=== PATIENT | female | born 1990 | race Caucasian/White ===

== ENCOUNTER 2017-12-21 20:12 | Inpatient (IN) | payer OTHER ==
--- NOTE | 2017-12-21 22:52 | PR ---
[facility] [address] [facility] [place], [place] [address] Signed Progress Notes IP Datetime Report Generated by PAOLO: 12/21/2017 22:52 PROGRESS NOTES: [id number] Impression: Slow Progression of Labor Procedures: Artificial ROM; Sterile Vag Exam Plan: Continue present management Informed Consent Obtain: Vaginal Delivery; Risks, Benefits and Alternatives Discussed VITAL SIGNS: [id number] Vital Signs: Reviewed VS Notable Details: HTN EXAM: [id number] Dilatation: 4.0 Effacement: 80 Station: -2 Uterine Contractions: q 1 to 4 min MEMBRANES: [id number] Membrane Status: Intact ROM Note: AROM with moderate clear fluid seen Comments: Progressing slowly. Will continue. Fetus A: [id number] FHR Baseline: 140 Variability: Moderate 6-25bpm Accelerations: 15X15 Decelerations: None FHR Category: Category I Presentation: Vertex Comments on Fetus A: No evidence of metabolic acidosis. Fetus B: [id number] Signing Physician: Carla Ashraf MD Copies: ~ *Electronically Signed* 12/21/17 2252 CARLA ASHRAF MD PATIENT NAME: SANTI BEDOLLA PROGRESS NOTE DATE OF : [birth year] PHYSICIAN: CARLA ASHRAF MD RPT #: [id number] REPORT IS CONFIDENTIAL AND NOT TO BE RELEASED WITHOUT AUTHORIZATION
--- NOTE | 2017-12-22 13:44 | NUR ---
12/22/17 1344 Beams,Skylar 1315 PATIENT ARRIVED TO ROOM 102 FROM SURGERY. LOW TRANSVERSE INCISION INTACT WITH ALEXANDER AND OLIVIA, JIGNA. PATIENT WITH ORAL AIRWAY, 10L VIA MASK FOR 98%. FUNDUS AT -1 PATIENT AROUSABLE TO FUNDUS CHECK. NO NAUSEA NOTED. 1322 PATIENT TO 6L VIA MASK AND 98% 1325 PATIENT WAKING, ORAL AIRWAY REMOVED. PATIENT IS ON ROOM AIR AND SATS ARE 97%. PATIENT IS HAVING ICE CHIPS. PATIENT REPORTS 7-8/10 ABD PAIN, NO NAUSEA.
--- NOTE | 2017-12-23 08:25 | PR ---
[facility] [address] [facility] [place], [place] [address] Signed PP Progress Notes Datetime Report Generated by CPGifty: 12/23/2017 08:25 SUBJECTIVE: [id number] Pain: Within normal limits Nausea/Vomiting: Denies Flatus: No Vital Signs: [id number] Vital Signs: Reviewed Notable Details: mild HTN EXAM: [id number] Cardiovascular: Normal Respiratory: Normal Abdomen/Uterus: Abnormal Lochia: Normal Vulva/Perineum: Normal Breasts: Not Done CVA Tenderness: Not Done Extremities: Abnormal Incision: Normal Progress: Normal Exam Comments: Abdomen with active BS. Fundus firm, tender @ U. Ext with 2+ edema, nontender H/H 10.5/31.4, WBC 9.8, plat 152k IMPRESSION/PLAN/PROCEDURES: [id number] Impression: Normal progression; Induced Hypertension Other Plans: shower, increase ambulation Progress Notes: Doing well overall. Her BPs remain mildly elevated. Signing Physician: Carla Ashraf MD Copies: ~ *Electronically Signed* 12/23/17 0825 CARLA ASHRAF MD PATIENT NAME: SANTI BEDOLLA PROGRESS NOTE DATE OF : [birth year] PHYSICIAN: CARLA ASHRAF MD RPT #: [id number] REPORT IS CONFIDENTIAL AND NOT TO BE RELEASED WITHOUT AUTHORIZATION
--- NOTE | 2018-01-19 08:03 | OR ---
[facility] [address] [place], [place] [address] Signed DATE OF OPERATION: 12/22/2017 SURGEON: Carla Ashraf MD PREOPERATIVE DIAGNOSIS: 39-week , preeclampsia, failure to descend. POSTOPERATIVE DIAGNOSIS: 39-week , preeclampsia, failure to descend, delivered. PROCEDURE: Primary section with low segment transverse uterine incision. ANESTHESIA: General after failed spinal. ESTIMATED BLOOD LOSS: 700 mL. DRAINS: Jameson catheter. INDICATIONS AND FINDINGS: The patient is a 27-year-old female, 3, para 1, AB1, who presented in early active labor at 38-6/7th weeks. She made slow progress in her labor and this continued despite AROM and addition of Pitocin. After finally reaching complete, she began pushing with good effort in several different positions, but the baby failed to descend beyond a zero station with the presenting part. It was not felt able to be delivered at that point at all and there was no progress at all with her pushing. Because of the lack of any progress, decision was made to proceed with section. The patient was consented and taken to the operating room. She was delivered of a little girl from the ROP position with Apgars of 8 and 9 and weight of 7 pounds and 4 ounces. There was no difficulty getting the baby up out of the pelvis as it was still very high. There was a loop of cord at the neck. The uterus, tubes, ovaries, and placenta otherwise appeared normal. PROCEDURE IN DETAIL: The patient was prepped and draped in the supine position. A Pfannenstiel skin incision was made and carried down through the fascia. The incision was extended laterally. The inferior and the superior fascial flaps were then created. The muscles were bluntly Electronically Signed By: CARLA ASHRAF MD 01/19/18 0803 PATIENT NAME: SANTI BEDOLLA OPERATIVE REPORT DATE OF : [birth year] REPORT #: [id number] PHYSICIAN: CARLA ASHRAF MD PCP: ELKE AMEZCUA DO REPORT IS CONFIDENTIAL AND NOT TO BE RELEASED WITHOUT AUTHORIZATION [facility] [address] [place], [place] [address] Signed divided and the peritoneum opened bluntly and the incision extended. The [place]abo retractor was then placed. An incision was then made at the upper aspect of the peritoneal reflection. The baby was delivered with the above findings and handed off to the pediatric staff in attendance. Cord gases were obtained as well. The placenta was removed manually and the uterus explored with a lap tape assuring no remaining fragments. The edges of the incision were identified and there was no evidence of any extensions. The uterus was closed in 2 layers using 0 Monocryl. The first layer was a running locking stitch and the second was a vertical imbricating stitch. An additional figure-of-8 was required in the center for control of bleeding. Superficial bleeding points were then controlled with cautery. The abdomen was then copiously irrigated and inspected and found to be hemostatic. The retractor was removed and the peritoneum identified. An ACell graft was laid over the lower segment to aid in healing. The peritoneum was then closed with a running suture of 3-0 Vicryl. The muscles were brought together with interrupted sutures of 0 Vicryl. Bleeding points were controlled with cautery. This layer was then irrigated and it was seen to be hemostatic as well. ACell powder was sprinkled over the muscles to aid in healing. The fascia was then closed from each angle to the midline with a running suture of 0 Vicryl. The subcutaneous tissue was irrigated and bleeding points controlled with cautery. Another ACell powder was sprinkled in this layer because of the depth of the subcu. Interrupted sutures of 3-0 Vicryl placed, reapproximated the deep space. The skin was closed with cathleen. All sponge and needle counts were correct. She tolerated the procedure well and was taken to the recovery room in good condition. Carla Ashraf MD PJW/MODL /[id number] cc: Dr. Amezcua Copies: ~ Electronically Signed By: CARLA ASHRAF MD 01/19/18 0803 PATIENT NAME: SANTI BEDOLLA OPERATIVE REPORT DATE OF : [birth year] REPORT #: [id number] PHYSICIAN: CARLA ASHRAF MD PCP: ELKE AMEZCUA DO REPORT IS CONFIDENTIAL AND NOT TO BE RELEASED WITHOUT AUTHORIZATION
== END 2017-12-25 14:40 | disposition home or self-care (01) | DRG 766 ==
LOC: FBCO 20:12 → FBC 21:55
PROVIDERS: ADMIT Obstetrics & Gynecology
PROC: 10907ZC Drainage of Amniotic Fluid, Therapeutic from Products of Conception, Via Natural or Artificial Opening (ICD-10-PCS; 2017-12-21)
PROC: 00HU33Z Insertion of Infusion Device into Spinal Canal, Percutaneous Approach (ICD-10-PCS; 2017-12-22)
PROC: 3E0R3BZ Introduction of Anesthetic Agent into Spinal Canal, Percutaneous Approach (ICD-10-PCS; 2017-12-22)
PROC: 10D00Z1 Extraction of Products of Conception, Low, Open Approach (ICD-10-PCS; principal; 2017-12-22 11:45)
DX: O14.94 Unspecified pre-eclampsia, complicating childbirth (principal); O32.4XX0 Maternal care for high head at term, not applicable or unspecified; O26.03 Excessive weight gain in pregnancy, third trimester; O99.214 Obesity complicating childbirth; E66.9 Obesity, unspecified; O99.344 Other mental disorders complicating childbirth; F31.9 Bipolar disorder, unspecified; F41.9 Anxiety disorder, unspecified; Z88.5 Allergy status to narcotic agent; Z87.891 Personal history of nicotine dependence; Z88.2 Allergy status to sulfonamides; Z3A.39 39 weeks gestation of pregnancy; Z37.0 Single live birth
CPT/HCPCS: 01960; 01961; 36415; 59025; 81001; 82803; 85027; 99213; C1763; J0330; J0690; J1644; J2250; J2270; J2274; J2405; J2590; J2765; J7030; J7120

== ENCOUNTER 2018-01-07 19:54 | Emergency (ER) | payer OTHER ==
[~2018-01-07] VITALS: Ht 172.7 cm; Wt 105.2 kg
[2018-01-07] MEDS ORDERED: PRENATAL TABLE1 EAC1 PO (20:13)
[2018-01-07] MEDS ORDERED: IBUPROFEN800 MG PO (20:13)
== END 2018-01-07 22:37 | disposition home or self-care (01) ==
LOC: ED 19:54
DX: O99.89 Other specified diseases and conditions complicating pregnancy, childbirth and the puerperium (principal); L76.22 Postprocedural hemorrhage of skin and subcutaneous tissue following other procedure; F41.9 Anxiety disorder, unspecified; Z88.2 Allergy status to sulfonamides
CPT/HCPCS: 99282

== ENCOUNTER 2018-01-13 17:30 | Emergency (ER) | payer OTHER ==
[~2018-01-13] VITALS: Ht 172.7 cm; Wt 105.2 kg
[~2018-01-13 17:30] MED LIST: IBUPROFEN800 MG PO; PRENATAL TABLE1 EAC1 PO
[2018-01-13] MEDS ORDERED: NORCO 5-325 TA1 EACH PO (21:36)
== END 2018-01-13 21:54 | disposition home or self-care (01) ==
LOC: ED 17:30
DX: G89.18 Other acute postprocedural pain (principal); R10.31 Right lower quadrant pain; Z87.891 Personal history of nicotine dependence; Z88.2 Allergy status to sulfonamides; Z79.899 Other long term (current) drug therapy; Z98.890 Other specified postprocedural states
CPT/HCPCS: 74177; 80053; 81001; 85025; 96361; 96374; 99284; J1885; J7030; Q9967

== ENCOUNTER 2018-10-30 22:42 | Emergency (ER) | payer OTHER ==
[~2018-10-30] VITALS: Ht 172.7 cm; Wt 90.3 kg
[~2018-10-30 22:42] MED LIST changes: +NORCO 5-325 TA1 EACH PO; +ONDANSETRON ODT8 MG PO; +PAXIL30 MG PO; +PROMETHAZINE HC25 M1 PO
--- OUTSIDE RECORDS SUMMARY | 2018-10-30 22:44 | XMS ---
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 Keena has no Care Guidelines for this patient. Elana VISIT COUNT (12 MO.) 4 [facility] TOTAL 4 NOTE: Visits indicate total known visits. ED/C VISIT TRACKING (12 MO.) 10/30/2018 22:42 [facility] [place] TYPE: Emergency COMPLAINT: - NUMBNESS IN EXREMITY 07/06/2018 08:04 [facility] [place] TYPE: Emergency COMPLAINT: - VOMITTING DIAGNOSES: - Other long-term (current) drug therapy - Noninfective gastroenteritis and colitis, unspecified - Personal history of nicotine dependence - Vomiting, unspecified - Allergy status to sulfonamides status 01/13/2018 17:30 [facility] [place] TYPE: Emergency COMPLAINT: - POST OP PROBLEM DIAGNOSES: - Right lower quadrant pain - OTHER SPECIFIED POSTPROCEDURAL STATES - Allergy status to sulfonamides status - Other acute postprocedural pain - Other long-term (current) drug therapy - Other specified postprocedural states - Personal history of nicotine dependence 01/07/2018 19:54 [facility] [place] TYPE: Emergency COMPLAINT: - POST OP PROBLEM DIAGNOSES: - Postprocedural hemorrhage of skin and subcutaneous tissue following other procedure - Allergy status to sulfonamides status - Anxiety disorder, unspecified - Other specified diseases and conditions complicating , childbirth and the puerperium INPATIENT VISIT TRACKING (12 MO.) 12/21/2017 21:[address] [facility] [place] TYPE: [facility] COMPLAINT: - LABOR DELIVERY DIAGNOSES: - Excessive weight gain in , third trimester - Bipolar disorder, unspecified - Single live - Personal history of nicotine dependence - 39 weeks gestation of - Other mental disorders complicating childbirth - Unspecified pre-eclampsia, complicating childbirth - Allergy status to narcotic agent status - Unspecified pre-eclampsia, third trimester - Obesity, unspecified - Obesity complicating childbirth - Maternal care for high head at term, not applicable or unspecified - Anxiety disorder, unspecified - Allergy status to sulfonamides status [email or web address]
[2018-10-30] MEDS ORDERED: ADDERALL 20 MG20 MG PO (22:55)
[2018-10-30] MEDS ORDERED: ADDERALL 10 MG10 MG PO (22:55)
[2018-10-30] MEDS ORDERED: NAPROSYN500 MG PO (22:56)
[2018-10-30] MEDS ORDERED: GABAPENTIN100 MG PO (22:56)
== END 2018-10-31 00:20 | disposition home or self-care (01) ==
LOC: ED 22:42
DX: G89.29 Other chronic pain (principal); M54.2 Cervicalgia; M54.5 Low back pain; R06.4 Hyperventilation; F41.9 Anxiety disorder, unspecified; F43.10 Post-traumatic stress disorder, unspecified; F90.9 Attention-deficit hyperactivity disorder, unspecified type; F17.200 Nicotine dependence, unspecified, uncomplicated; Z88.2 Allergy status to sulfonamides; Z79.899 Other long term (current) drug therapy
CPT/HCPCS: 99284

== ENCOUNTER 2018-11-17 00:12 | Emergency (ER) | payer OTHER ==
[~2018-11-17] VITALS: Ht 172.7 cm; Wt 90.3 kg
[~2018-11-17 00:12] MED LIST changes: +ADDERALL 10 MG10 MG PO; +ADDERALL 20 MG20 MG PO; +GABAPENTIN100 MG PO; +NAPROSYN500 MG PO
--- OUTSIDE RECORDS SUMMARY | 2018-11-17 00:14 | XMS ---
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 Care History Medical/Surgical 11/02/2018 [facility] - Patient is currently established with [facility]. If patient is seen in the ED during business hours. Please contact CHWs at [facility]. Care Recommendation: This patient has had 5 or more Emergency Department visits in the last 12 months.\T\nbsp; Patient requires education on the scope and purpose of the ED as an acute care provider not a Primary Care Provider and should not be utilized for chronic conditions.\T\nbsp; These are guidelines and the provider should exercise clinical judgment when providing care. E.D. VISIT COUNT (12 MO[address] 5 [facility]. TOTAL 5 NOTE: Visits indicate total known visits. ED/UCC VISIT TRACKING (12 MO.) 11/17/2018 00:12 [facility] [place] TYPE: Emergency COMPLAINT: - CHEST PAIN/SOB 10/30/2018 22:42 [facility] [place] TYPE: Emergency COMPLAINT: - NUMBNESS IN EXREMITY DIAGNOSES: - Low back pain - Post-traumatic stress disorder, unspecified - Other long line teamster (current) drug therapy - Anxiety disorder, unspecified - Nicotine dependence, unspecified, uncomplicated - Attention-deficit hyperactivity disorder, unspecified type - Allergy status to sulfonamides status - Cervicalgia - Hyperventilation - Other chronic pain 07/06/2018 08:04 [facility] [place] TYPE: Emergency COMPLAINT: - VOMITTING DIAGNOSES: - Other long line teamster (current) drug therapy - Noninfective gastroenteritis and colitis, unspecified - Personal history of nicotine dependence - Vomiting, unspecified - Allergy status to sulfonamides status 01/13/2018 17:30 [facility] [place] TYPE: Emergency COMPLAINT: - POST OP PROBLEM DIAGNOSES: - Right lower quadrant pain - OTHER SPECIFIED POSTPROCEDURAL STATES - Allergy status to sulfonamides status - Other acute postprocedural pain - Other fci (current) drug therapy - Other specified postprocedural [...] 21:[address] [facility] [place] TYPE: [facility] COMPLAINT: - LABOR DELIVERY DIAGNOSES: - [...] unspecified - Allergy status to sulfonamides status [email or web address]
[2018-11-17] MEDS ORDERED: VERAPAMIL ER120 M1 PO (00:24)
--- NOTE | 2018-11-17 14:00 | EKG ---
[facility] [address] [facility] [place], [place] [address] Signed Normal sinus rhythm with sinus arrhythmia Normal ECG No previous ECGs available Confirmed by JEROME ASKEW MD ([id number]) on 11/17/2018 2:00:21 PM Electronically Signed By: JEROME ASKEW MD 11/17/18 1400 PATIENT NAME: SANTI BEDOLLA GUILLERMO Electrocardiogram DATE OF : 89 PHYSICIAN: JEROME ASKEW MD REPORT #: [id number] REPORT IS CONFIDENTIAL AND NOT TO BE RELEASED WITHOUT AUTHORIZATION
== END 2018-11-17 02:26 | disposition home or self-care (01) ==
LOC: ED 00:12
DX: R07.89 Other chest pain (principal); F41.9 Anxiety disorder, unspecified; F43.10 Post-traumatic stress disorder, unspecified; F17.200 Nicotine dependence, unspecified, uncomplicated; Z88.2 Allergy status to sulfonamides; Z79.899 Other long term (current) drug therapy
CPT/HCPCS: 71046; 80053; 84484; 85025; 85379; 93005; 93010; 99285-25

== ENCOUNTER 2019-01-06 11:49 | Emergency (ER) | payer OTHER ==
[~2019-01-06] VITALS: Ht 172.7 cm; Wt 80.7 kg
--- OUTSIDE RECORDS SUMMARY | ~2019-01-06 | XMS | Clinical Summary ---
Demographics + + + | Address | [address] | | | [place] [address] | + + + | Home Phone | | + + + | Preferred Language | Unknown | + + + | Marital Status | Unknown | + + + | Taoist Affiliation | Unknown | + + + | Race | Unknown | + + + | Ethnic Group | Unknown | + + + Author + + + | Author | [facility] [employer] | + + + | Organization | [facility] | + + + | Address | Unknown | + + + | Phone | Unavailable | + + + Care Team Providers + +------+ + | Care Ice Hockey Coach Name | Role | Phone | + +------+ + PP | Unavailable | + +------+ + Allergies Not on File Current Medications Not on file Active Problems Not on file Encounters +--------+ + + + + | Date | Type | Specialty | Care Team | Description | +--------+ + + + + | 11/23/ | Documentati | | Ines Loera, | | | 2019 | on Only | | MD | | +--------+ + + + + from Last 3 Months Social History + +-------+ +--------+------+ | Tobacco Use | Types | Packs/Day | Years | Date | | | | | Used | | + +-------+ +--------+------+ | Never Assessed | | | | | + +-------+ +--------+------+ + + + | Sex Assigned at | Date Recorded | | | | + + + | Not on file | | + + + Plan of Treatment +--------+---------+ + + + | Date | Type | Specialty | Care Team | Description | +--------+---------+ + + + | 01/20/ | Office | | Ines Loera, | | | 2019 | Visit | | MD Rodríguez Ghosh | | | | | | [place] | | | | | | [address] | | | | | | | | +--------+---------+ + + + + + + + + | Health [...] Influenza | | 05/17/2009 | | | (Season Ended) | 9 | | | + + + + + Results Not on filefrom Last 3 Months"
--- OUTSIDE RECORDS SUMMARY | ~2019-01-06 | XMS | Clinical Summary ---
Demographics + + + | Address | [address] | | | [place] [address] | + + + | Home Phone | | + + + | Preferred Language | Unknown | + + + | Marital Status | Unknown | + + + | Yarsani Affiliation | Unknown | + + + | Race | Unknown | + + + | Ethnic Group | Unknown | + + + Author + + + | Author | [facility]bekah [employer] | + + + | Organization | [facility] | + + + | Address | Unknown | + + + | Phone | Unavailable | + + + Care Team Providers + +------+ + | Care Weather Analyst Name | Role | Phone | + [...] [place] | | | | | | [address] | | | | | | | [...]
--- OUTSIDE RECORDS SUMMARY | ~2019-01-06 | XMS | Encounter Summary ---
Demographics + + + | Address | [address] | | | [place] [address] | + + + | Home Phone | | + + + | Preferred Language | Unknown | + + + | Marital Status | Unknown | + + + | Tenriism Affiliation | Unknown | + + + | Race | Unknown | + + + | Ethnic Group | Unknown | + + + Author + + + | Author | [facility] | + + + | Organization | [facility] | + + + | Address | Unknown | + + + | Phone | Unavailable | + + + Care Team Providers + +------+ + | Care Apprentice Architect Name | Role | Phone | + +------+ + PCP | Unavailable | + +------+ + Encounter Details +--------+ + + + + | Date | Type | Department | Care Team | Description | +--------+ + + + + | 11/23/ | Documentati | [facility] | Ines Loera, | | | 2019 | on Only | [facility] | [address] | | | | | [address] [place] | | | | | [place] | [address] | | | | | [address] | | | | | | [phone] | | | +--------+ + + + + Social History + +-------+ +--------+------+ | [...] on file | | + + + as of this encounter Progress Notes Renata Marley N - 11/23/2018 12:01 PM PDTNeurology referralin this encounter Plan of Treatment +--------+---------+ + + + | Date | Type | Specialty | Care Team | Description | +--------+---------+ + + + | 01/20/ | Office | Neurology | Ines Loera, | | | 2018 | Visit | | MD Rodríguez Ghosh | | | | | | [place] | | | | | | [id number] | | | | | | | | +--------+---------+ + + + as of this encounter Visit Diagnoses Not on filein this encounter"
--- OUTSIDE RECORDS SUMMARY | ~2019-01-06 | XMS | Encounter Summary ---
Demographics + + + | Address | [address] | | | [place] [address] | + + + | Home Phone | | + + + | Preferred Language | Unknown | + + + | Marital Status | Unknown | + + + | Anabaptist Affiliation | Unknown | + + + | Race | Unknown | + + + | Ethnic Group | Unknown | + + + Author + + + | Author | [facility] | + + + | Organization | [facility] | + + + | Address | Unknown | + + + | Phone | Unavailable | + + + Care Team Providers + +------+ + | Care Contract Runner Name | Role | Phone | + +------+ + PCP | Unavailable | + +------+ + Encounter Details +--------+ + + + + | Date | Type | Department | Care Team | Description | +--------+ + + + + | 11/23/ | Documentati | [facility] | Ines Loera, | | | 2019 | on Only | [facility] | [address] | | | | | [address] | [address] [place] [place] | | | | | [place] | [address] | | | | | [address] | | | | | | [phone] | | | +--------+ + + + [...] [place] | | | | | | [id number] | | | | | | | | +--------+---------+ + + + as of this encounter Visit Diagnoses Not on filein this encounter"
[~2019-01-06 11:49] MED LIST changes: +VERAPAMIL ER120 M1 PO
--- OUTSIDE RECORDS SUMMARY | 2019-01-06 11:52 | XMS ---
PreManage Notification: SANTI BEDOLLA Security Crimper Operator Events No recent Security Events currently on file CRITERIA MET - [facility] - Has Care Guidelines - PDMP CARE PROVIDERS ROBLES MANNING Nurse Practitioner: Family 11/02/2018-Current PHONE: Unknown Keena has no Care Guidelines for this patient. Care History Medical/Surgical 11/02/2018 [facility] - Patient is currently established with [facility]. If patient is seen in the ED during business hours. Please contact CHWs at [facility]. Care Recommendation: This patient has had 5 [...] providing care. E.D. VISIT COUNT (12 MO.) 6 [facility] TOTAL 6 NOTE: Visits indicate total known visits. ED/UCC VISIT TRACKING (12 MO.) 01/06/2019 11:50 [facility] [place] TYPE: Emergency COMPLAINT: - MEDICAL CLEARANCE 11/17/2018 00:12 [facility] [place] TYPE: Emergency COMPLAINT: - CHEST PAIN/SOB DIAGNOSES: - Allergy status to sulfonamides status - Nicotine dependence, unspecified, uncomplicated - Post-traumatic stress disorder, unspecified - Other terminal press operator (current) drug therapy - Other chest pain - Anxiety disorder, unspecified 10/30/2018 22:42 [facility] [place] TYPE: Emergency COMPLAINT: - NUMBNESS IN EXREMITY DIAGNOSES: - Low back pain - Post-traumatic stress disorder, unspecified - Other terminal press operator (current) drug therapy - Anxiety disorder, unspecified - Nicotine dependence, unspecified, uncomplicated - Attention-deficit hyperactivity disorder, unspecified type - Allergy status to sulfonamides status - Cervicalgia - Hyperventilation - Other chronic pain 07/06/2018 08:04 [facility] [place] TYPE: Emergency COMPLAINT: - VOMITTING DIAGNOSES: - Other detention (current) drug therapy - Noninfective gastroenteritis and colitis, unspecified - Personal history of nicotine dependence - Vomiting, unspecified - Allergy status to sulfonamides status 01/13/2018 17:30 [facility] [place] TYPE: Emergency COMPLAINT: - POST OP PROBLEM DIAGNOSES: - Right lower quadrant pain - OTHER SPECIFIED POSTPROCEDURAL STATES - Allergy status to sulfonamides status - Other acute postprocedural pain - Other terminal press operator (current) drug therapy - Other specified postprocedural states - Personal history of nicotine dependence 01/07/2018 19:[address] [facility] [place] TYPE: Emergency COMPLAINT: - POST OP PROBLEM DIAGNOSES: - Postprocedural hemorrhage of skin and subcutaneous tissue following other procedure - Allergy status to sulfonamides status - Anxiety disorder, unspecified - Other specified diseases and conditions complicating , childbirth and the puerperium INPATIENT VISIT TRACKING (12 MO.) No inpatient visits to display in this time frame [email or web address]
== END 2019-01-06 13:48 | disposition home or self-care (01) ==
LOC: ED 11:49
DX: Z00.8 Encounter for other general examination (principal); F41.9 Anxiety disorder, unspecified; F43.10 Post-traumatic stress disorder, unspecified; F17.200 Nicotine dependence, unspecified, uncomplicated; Z88.2 Allergy status to sulfonamides; Z79.899 Other long term (current) drug therapy
CPT/HCPCS: 80053; 80176; 81001; 84703; 85025; 87880; 99283; G0480

== ENCOUNTER 2019-01-13 21:41 | Emergency (ER) | payer OTHER ==
[~2019-01-13] VITALS: Ht 172.7 cm; Wt 80.7 kg
--- NOTE | ~2019-01-13 | EKG ---
[facility] [address] [facility] [place], [place] [address] Draft EK completed, results pending confirmation PATIENT NAME: SANTI BEDOLLA Electrocardiogram DATE OF : 89 PHYSICIAN: PRELIMINARY REPORT #: [id number] REPORT IS CONFIDENTIAL AND NOT TO BE RELEASED WITHOUT AUTHORIZATION
--- NOTE | ~2019-01-13 | EKG ---
[facility] [address] [facility] [place], [place] [address] Draft EK completed, results pending confirmation PATIENT NAME: SANTI BEDOLLA Electrocardiogram DATE OF : [birth year] PHYSICIAN: PRELIMINARY REPORT #: [id number] REPORT IS CONFIDENTIAL AND NOT TO BE RELEASED WITHOUT AUTHORIZATION
--- OUTSIDE RECORDS SUMMARY | 2019-01-13 21:44 | XMS ---
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 Care History Medical/Surgical 11/02/2018 [facility] - Patient is currently established with [facility]. If patient is seen in the ED during business hours. Please contact CHWs at [facility]. Care Recommendation: This patient has had 5 [...] care. E.D. VISIT COUNT (12 MO.) 6 J[facility]IEL Urias TOTAL 6 NOTE: Visits indicate total known visits. ED/UCC VISIT TRACKING (12 MO.) 01/13/2019 21:42 [facility] [place] TYPE: Emergency COMPLAINT: - RAPID HEART RATE 01/06/2019 11:50 [facility] [place] TYPE: Emergency COMPLAINT: - MEDICAL CLEARANCE DIAGNOSES: - Other terminal make up operator (current) drug therapy - Allergy status to sulfonamides status - Post-traumatic stress disorder, unspecified - Nicotine dependence, unspecified, uncomplicated - Anxiety disorder, unspecified - Encounter for other general examination 11/17/2018 00:12 [facility] Shah [place] TYPE: Emergency COMPLAINT: - CHEST PAIN/SOB DIAGNOSES: - Allergy status to sulfonamides status - Nicotine dependence, unspecified, uncomplicated - Post-traumatic stress disorder, unspecified - Other fci (current) drug therapy - Other chest pain - Anxiety disorder, unspecified 10/30/2018 22:42 [facility] [place] TYPE: Emergency COMPLAINT: - NUMBNESS IN EXREMITY DIAGNOSES: - Low back pain - Post-traumatic stress disorder, unspecified - Other fci (current) drug therapy - Anxiety disorder, unspecified - Nicotine dependence, unspecified, uncomplicated - Attention-deficit hyperactivity disorder, unspecified type - Allergy status to sulfonamides status - Cervicalgia - Hyperventilation - Other chronic pain 07/06/2018 08:04 [facility] [place] TYPE: Emergency COMPLAINT: - VOMITTING DIAGNOSES: - Other fci (current) drug therapy - Noninfective gastroenteritis and [...] states - Personal history of nicotine dependence INPATIENT VISIT TRACKING (12 MO.) No inpatient visits to display in this time frame [email or web address]
[2019-01-13] MEDS ORDERED: OLANZAPINE5 MG PO (21:54)
[2019-01-13] MEDS ORDERED: HYDROXYZINE PAM25 MG PO (21:55)
== END 2019-01-13 23:23 | disposition home or self-care (01) ==
LOC: ED 21:41
DX: F41.9 Anxiety disorder, unspecified (principal); R07.89 Other chest pain; F17.200 Nicotine dependence, unspecified, uncomplicated; Z88.2 Allergy status to sulfonamides; Z79.899 Other long term (current) drug therapy
CPT/HCPCS: 71046; 93005; 93010; 96372; 99285-25; J2060

== ENCOUNTER 2019-01-25 14:21 | Emergency (ER) | payer OTHER ==
[~2019-01-25] VITALS: Ht 172.7 cm; Wt 80.7 kg
[~2019-01-25 14:21] MED LIST changes: +HYDROXYZINE PAM25 MG PO; +OLANZAPINE5 MG PO
--- OUTSIDE RECORDS SUMMARY | 2019-01-25 14:24 | XMS ---
PreManage Notification: SANTI BEDOLLA Security Pet Stylist Events No recent Security Events currently on file CRITERIA MET - [facility] - Has Care Guidelines - PDMP - [facility] - 2 Visits in 30 Days CARE PROVIDERS ROBLES MANNING Nurse Practitioner: Family 11/02/2018-Current PHONE: Unknown Guidelines Source: [email or web address] [place] Guidelines Date: 01/07/2019 Care Coordination: Has engaged in mental health services with [facility].\T\nbsp; Please contact [email or web address] for mental health concerns.\T\nbsp; [place]/Raman Ramirez: \T\nbsp; [place]: [phone]. Care History Medical/Surgical 11/02/2018 [facility] - Patient is currently established with [facility]. If patient is seen in the ED during business hours. Please contact CHWs at [facility]. Care Recommendation: This patient has had 5 [...] known visits. ED/UCC VISIT TRACKING (12 MO.) 01/25/2019 14:22 JADIEL Shah [place] TYPE: Emergency COMPLAINT: - RAPID HEART RATE 01/13/2019 21:42 JAD[facility] Shah [place] TYPE: Emergency COMPLAINT: - RAPID HEART RATE DIAGNOSES: - Other chest pain - Nicotine dependence, unspecified, uncomplicated - Anxiety disorder, unspecified - Allergy status to sulfonamides status - Other terminal makeup operator (current) drug therapy - Tachycardia, unspecified 01/06/2019 11:50 JAD[facility] Shah [place] TYPE: Emergency COMPLAINT: - MEDICAL CLEARANCE DIAGNOSES: - Other terminal makeup operator (current) drug therapy - Allergy status to sulfonamides status - Post-traumatic stress disorder, unspecified - Nicotine dependence, unspecified, uncomplicated - Anxiety disorder, unspecified - Encounter for other general examination 11/17/2018 00:12 JAD[facility]EL Shah [place] TYPE: Emergency COMPLAINT: - CHEST PAIN/SOB DIAGNOSES: - Allergy status to sulfonamides status - Nicotine dependence, unspecified, uncomplicated - Post-traumatic stress disorder, unspecified - Other terminal makeup operator (current) drug therapy - Other chest pain - Anxiety disorder, unspecified 10/30/2018 22:42 JADIEL Shah [place] TYPE: Emergency COMPLAINT: - NUMBNESS IN EXREMITY DIAGNOSES: - Low back pain - Post-traumatic stress disorder, unspecified - Other terminal makeup operator (current) drug therapy - Anxiety disorder, unspecified - Nicotine dependence, unspecified, uncomplicated - Attention-deficit hyperactivity disorder, unspecified type - Allergy status to sulfonamides status - Cervicalgia - Hyperventilation - Other chronic pain 07/06/2018 08:04 JADIEL Shah [place] TYPE: Emergency COMPLAINT: - VOMITTING DIAGNOSES: - Other terminal makeup operator (current) drug therapy - Noninfective gastroenteritis and colitis, unspecified - Personal history of nicotine dependence - Vomiting, unspecified - Allergy status to sulfonamides status INPATIENT VISIT TRACKING (12 MO.) No inpatient visits to display in this time frame [id number]
[2019-01-25] MEDS ORDERED: TOPAMAX25 MG PO (14:35)
--- NOTE | 2019-01-26 16:05 | EKG ---
[facility] [address] [place], [place] [address] Signed Accelerated Junctional rhythm Abnormal ECG When compared with ECG of 13-JAN-2019 22:55, Junctional rhythm has replaced Sinus rhythm Confirmed by JOHN SCOTT DO ([id number]) on 01/26/2019 4:05:13 PM Electronically Signed By: JOHN SCOTT DO 01/26/19 1605 PATIENT NAME: ELSY BEDOLLAAlexa LI Electrocardiogram DATE OF : 89 PHYSICIAN: JOHN SCOTT DO REPORT #: [id number] REPORT IS CONFIDENTIAL AND NOT TO BE RELEASED WITHOUT AUTHORIZATION
== END 2019-01-25 15:44 | disposition home or self-care (01) ==
LOC: ED 14:21
DX: R00.0 Tachycardia, unspecified (principal); F17.200 Nicotine dependence, unspecified, uncomplicated; F41.9 Anxiety disorder, unspecified; Z88.2 Allergy status to sulfonamides; Z79.899 Other long term (current) drug therapy
CPT/HCPCS: 93005; 93010; 99283-25

== ENCOUNTER 2019-03-29 18:09 | Emergency (ER) | payer OTHER ==
[~2019-03-29] VITALS: Ht 172.7 cm; Wt 77.1 kg
[~2019-03-29 18:09] MED LIST changes: +TOPAMAX25 MG PO
--- OUTSIDE RECORDS SUMMARY | 2019-03-29 18:12 | XMS ---
PreManage Notification: SANTI BEDOLLA Security Air Breaker Operator Events No recent Security Events currently on file CRITERIA MET - 6 ED Visits in 6 Months - [facility] - Has Care Guidelines - PDMP CARE PROVIDERS ROBLES MANNING Nurse Practitioner: Family 11/02/2018-Current PHONE: Unknown Guidelines Source: [facility] Guidelines Date: 01/07/2019 Care Coordination: Has engaged in mental health services with [facility].\T\nbsp; Please contact [facility] for mental health concerns.\T\nbsp; [place] [place] \T\nbsp; [place]: [phone]. Care History Medical/Surgical 11/02/2018 [facility] - PATIENT HAS A FOLLOW UP APT WITH PCP ROBLES MANNING ON 01/27/19. - Patient is currently established with [facility]. If patient is seen in the ED during business hours. Please contact CHWs at [facility]. Care Recommendation: This patient has had [...] providing care. E.D. VISIT COUNT (12 MO.) 7 JADIEL Urias TOTAL 7 NOTE: Visits indicate total known visits. ED/UCC VISIT TRACKING (12 MO.) 03/29/2019 18:09 JADIEL Shah [place] TYPE: Emergency COMPLAINT: - ABD PAIN 01/25/2019 14:22 JADIEL Shah [place] TYPE: Emergency COMPLAINT: - RAPID HEART RATE DIAGNOSES: - Allergy status to sulfonamides status - Tachycardia, unspecified - Other medical terminologist (current) drug therapy - Nicotine dependence, unspecified, uncomplicated - Palpitations - Anxiety disorder, unspecified 01/13/2019 21:42 JADIEL Shah [place] TYPE: Emergency COMPLAINT: - RAPID HEART RATE DIAGNOSES: - Other chest pain - Nicotine dependence, unspecified, uncomplicated - Anxiety disorder, unspecified - Allergy status to sulfonamides status - Other medical terminologist (current) drug therapy - Tachycardia, unspecified 01/06/2019 11:50 JADIEL Shah [place] TYPE: Emergency COMPLAINT: - MEDICAL CLEARANCE DIAGNOSES: - Other medical terminologist (current) drug therapy - Allergy status to sulfonamides status - Post-traumatic stress disorder, unspecified - Nicotine dependence, unspecified, uncomplicated - Anxiety disorder, unspecified - Encounter for other general examination 11/17/2018 00:12 JADIEL Shah [place] TYPE: Emergency COMPLAINT: - CHEST PAIN/SOB DIAGNOSES: - Allergy status to sulfonamides status - Nicotine dependence, unspecified, uncomplicated - Post-traumatic stress disorder, unspecified - Other chcf (current) drug therapy - Other chest pain - Anxiety disorder, unspecified 10/30/2018 22:42 JADIEL Shah [place] TYPE: Emergency COMPLAINT: - NUMBNESS IN EXREMITY DIAGNOSES: - Low back pain - Post-traumatic stress disorder, unspecified - Other chcf (current) drug therapy - Anxiety disorder, unspecified - Nicotine dependence, unspecified, uncomplicated - Attention-deficit hyperactivity disorder, unspecified type - Allergy status to sulfonamides status - Cervicalgia - Hyperventilation - Other chronic pain 07/06/2018 08:04 JADIEL Shah [place] TYPE: Emergency COMPLAINT: - VOMITTING DIAGNOSES: - Other chcf (current) drug therapy - Noninfective gastroenteritis and colitis, unspecified - Personal history of nicotine dependence - Vomiting, unspecified - Allergy status to sulfonamides status INPATIENT VISIT TRACKING (12 MO.) No inpatient visits to display in this time frame [id number]
[2019-03-29] MEDS ORDERED: CYMBALTA30 MG PO (18:19)
[2019-03-29] MEDS ORDERED: CYCLOBENZAPRINE10 MG PO (18:20)
[2019-03-29] MEDS ORDERED: TRAMADOL HCL50 MG PO (21:04)
[2019-03-29] MEDS ORDERED: ZOFRAN4 MG PO (21:07)
== END 2019-03-29 21:17 | disposition home or self-care (01) ==
LOC: ED 18:09
DX: R10.31 Right lower quadrant pain (principal); F17.200 Nicotine dependence, unspecified, uncomplicated; Z88.2 Allergy status to sulfonamides
CPT/HCPCS: 74177; 80053; 83690; 85025; 99284-25; 99406; J2060; J2405; J7030; Q9967

== ENCOUNTER 2019-07-04 12:17 | Emergency (ER) | payer OTHER ==
[~2019-07-04] VITALS: Ht 172.7 cm; Wt 77.1 kg
--- OUTSIDE RECORDS SUMMARY | ~2019-07-04 | XMS | Clinical Summary ---
Demographics + + + | Address | [address] | | | [place] [address] | + + + | Home Phone | | + + + | Preferred Language | Unknown | + + + | Marital Status | Unknown | + + + | Sikhism Affiliation | Unknown | + + + | Race | Unknown | + + + | Ethnic Group | Unknown | + + + Author + + + | Author | [facility] (Historical as of | | | 03-27-19) | + + + | Organization | [facility] (Historical as of | | | 03-27-19) | + + + | Address | Unknown | + + + | Phone | Unavailable | + + + Support + + +---------+ + | Name | Relationship | Address | Phone | + + +---------+ + | Candelario Lafleur | ECON | Unknown | | + + +---------+ + Care Team Providers + +------+ + | Care Tennis Centre Manager Name | Role | Phone | + +------+ + | Thom Lou | PP | | + +------+ + Allergies + + + + + + | Active Allergy | Reactions | Severity | Noted | Comments | | | | | Date | | + + + + + + | Sulfa Antibiotics | Rash | Medium | 01/21/20 | | | | | | 19 | | + + + + + + Current Medications + + +--------+---------+------+------+-------+ | Prescription | Sig. | Disp. | Refills | Star | End | Statu | | | | | | t | Date | s | | | | | | Date | | | + + +--------+---------+------+------+-------+ | gabapentin | 3 capsules nightly. | | 0 | 05/2 | | Activ | | (NEURONTIN) 100 MG | | | | 3/20 | | e | | capsule | | | | 19 | | | + + +--------+---------+------+------+-------+ | hydrOXYzine | 2 capsules as | | | 05/3 | | Activ | | (VISTARIL) 25 MG | needed. | | | 0/20 | | e | | capsule | | | | 19 | | | + + +--------+---------+------+------+-------+ | OLANZapine | Take 5 mg by mouth | | 0 | 06/0 | | Activ | | (ZYPREXA) 5 MG | nightly. | | | 2/20 | | e | | tablet | | | | 19 | | | + + +--------+---------+------+------+-------+ | PARoxetine (PAXIL) | 1 tablet every | | 0 | 04/0 | | Activ | | 10 MG tablet | morning. | | | 02/27 | | e | | | | | | 19 | | | + + +--------+---------+------+------+-------+ | verapamil | 1 tablet nightly. | | 0 | 05/2 | | Activ | | (CALAN-SR) 180 MG CR | | | | 20 | | e | | tablet | | | | 19 | | | + + +--------+---------+------+------+-------+ | naproxen | Take 500 mg by mouth | | | | | Activ | | (NAPROSYN) 500 MG | 2 (two) times daily | | | | | e | | tablet | with meals. | | | | | | + + +--------+---------+------+------+-------+ | promethazine | Take 25 mg by mouth | | | | | Activ | | (PHENERGAN) 25 MG | every 6 (six) hours | | | | | e | | tablet | as needed for | | | | | | | | Nausea. | | | | | | + + +--------+---------+------+------+-------+ | topiramate | Take 1 tab daily for | 60 | 5 | 06/1 | | Activ | | (TOPAMAX) 25 MG | 15 days, then 1 tab | tablet | | 2/20 | | e | | tabletIndications: | twice a day | | | 19 | | | | Intractable chronic | | | | | | | | migraine without | | | | | | | | aura and with status | | | | | | | | migrainosus | | | | | | | + + +--------+---------+------+------+-------+ Active Problems No known active problems Immunizations + + + + | Name | Dates Previously Given | Next Due | + + + + | DTP | 02/17/1996, 07/05/1992 | | + + + + | HPV Quadrivalent | 11/08/2009 | | + + + + | Influenza, Trivalent | 05/17/2009 | | | W/Preservative | | | + + + + | MMR | 03/15/2002, 07/05/1992 | | + + + + | OPV | 02/17/1996, 07/05/1992 | | + + + + | Tdap | 12/11/2009 | | + + + + Family History + + +------+ + | Medical History | Relation | Name | Comments | + + +------+ + | Migraines | Father | | | + + +------+ + + +------+--------+ + | Relation | Name | Status | Comments | + +------+--------+ + | Father | | | | + +------+--------+ + Social History + +-------+ +--------+------+ | Tobacco Use | Types | Packs/Day | Years | Date | | | | | Used | | + +-------+ +--------+------+ | Current Every Day | | 0.5 | | | | Smoker | | | | | + +-------+ +--------+------+ + +---+---+---+ | Smokeless Tobacco: | | | | | Never Used | | | | + +---+---+---+ + + +---------+ + | Alcohol Use | Drinks/We | oz/Week | Comments | | | ek | | | + + +---------+ + | No | | | | + + +---------+ + + + + | Sex Assigned at | Date Recorded | | | | + + + | Not on file | | + + + Last Filed Vital Signs + + + + | Vital Sign | Reading | Time Taken | + + + + | Blood Pressure | 110/72 | 01/20/2019 8:24 AM PDT | + + + + | Pulse | 68 | 01/20/2019 8:24 AM PDT | + + + + | Temperature | - | - | + + + + | Respiratory Rate | - | - | + + + + | Oxygen Saturation | 100% | 01/20/2019 8:24 AM PDT | + + + + | Inhaled Oxygen | - | - | | Concentration | | | + + + + | Weight | 83.5 kg (184 lb 1.6 | 01/20/2019 8:24 AM PDT | | | oz) | | + + + + | Height | 172.7 cm (5' 8") | 01/20/2019 8:24 AM PDT | + + + + | Body Mass Index | 27.99 | 01/20/2019 8:24 AM PDT | + + + + Plan of Treatment + + + + + | Health Maintenance | Due Date | Last Done | Comments | + + + + + | Vaccine: | | | | | Pneumococcal 19-64 | 0 | | | | (PPSV23 only) Medium | | | | | Risk (1 of 1 - | | | | | PPSV23) | | | | + + + + + | Cervical Cancer | | | | | Screening (Pap) | 2 | | | + + + + + | Vaccine: | | 12/11/2009 | | | Dtap/Tdap/Td (2 - | 5 | | | | Td) | | | | + + + + + | Vaccine: Influenza | | 05/17/2009 | | | (#1) | 9 | | | + + + + + Results Not on filefrom Last 3 Months Insurance + +--------+ +------+-------+---------+ | Payer | Benefi | Subscriber | Type | Phone | Address | | | t Plan | ID | | | | | | / | | | | | | | Group | | | | | + +--------+ +------+-------+---------+ | [employer] | ODS | [id number] | | | | | | HEALTH | | | | | | | PLAN | | | | | + +--------+ +------+-------+---------+ + +--------+ +--------+ + + | Guarantor Name | Accoun | Relation to | Date | Phone | Billing Address | | | t Type | Patient | of | | | | | | | | | | + +--------+ +--------+ + + | SANTI BEDOLLA | Person | Self | [birth year] | Home: | [address] | | | al/Fam | | 1989 | [phone] | [place] | | | karen | | | [phone] | [phone] | + +--------+ +--------+ + +
--- OUTSIDE RECORDS SUMMARY | ~2019-07-04 | XMS | Clinical Summary ---
Demographics + + + | Address | [address] | | | [place] [address] | + + + | Home Phone | | + + + | Preferred Language | Unknown | + + + | Marital Status | Unknown | + + + | Voodoo Affiliation | Unknown | + + + | Race | Unknown | + + + | Ethnic Group | Unknown | + + + Author + + + | Author | [facility] | | | and [place] | + + + | Organization | [facility] | | | and [place] | + + + | Address | Unknown | + + + | Phone | Unavailable | + + + Care Team Providers + +------+ + | Care Operations Intelligence Superintendent Name | Role | Phone | + +------+ + | Thom Lou NP | PCP | | + +------+ + Allergies + + + + + + | Active Allergy | Reactions | Severity | Noted | Comments | | | | | Date | | + + + + + + | Sulfa Antibiotics | Rash | Medium | 01/21/20 | | | | | | 19 | | + + + + + + Medications + + + +---------+------+------+-------+ | Medication | Sig | Dispensed | Refills | Star | End | Statu | | | | | | t | Date | s | | | | | | Date | | | + + + +---------+------+------+-------+ | gabapentin | 3 capsules nightly. | | 0 | 05/2 | | Activ | | (NEURONTIN) 100 mg | | | | 3/20 | | e | | capsule | | | | 19 | | | + + + +---------+------+------+-------+ | hydrOXYzine | 2 capsules as | | 0 | 05/3 | | Activ | | pamoate (VISTARIL) | needed. | | | 0/20 | | e | | 25 mg capsule | | | | 19 | | | + + + +---------+------+------+-------+ | OLANZapine | Take 5 mg by mouth | | 0 | 06/0 | | Activ | | (ZYPREXA) 5 mg | nightly. | | | 2/20 | | e | | tablet | | | | 19 | | | + + + +---------+------+------+-------+ | PARoxetine (PAXIL) | 1 tablet every | | 0 | 04/0 | | Activ | | 10 mg tablet | morning. | | | 7/20 | | e | | | | | | 19 | | | + + + +---------+------+------+-------+ | verapamil (CALAN | 1 tablet nightly. | | 0 | 05/2 | | Activ | | SR) 180 mg SR tablet | | | | 320 | | e | | | | | | 19 | | | + + + +---------+------+------+-------+ | naproxen | Take 500 mg by mouth | | 0 | 06/1 | | Activ | | (NAPROSYN) 500 mg | 2 (two) times daily | | | 2/20 | | e | | tablet | with meals. | | | 19 | | | + + + +---------+------+------+-------+ | promethazine | Take 25 mg by mouth | | 0 | 06/1 | | Activ | | (PHENERGAN) 25 mg | every 6 (six) hours | | | 2/20 | | e | | tablet | as needed for | | | 19 | | | | | Nausea. | | | | | | + + + +---------+------+------+-------+ | topiramate | Take 1 tab daily for | 60 | 5 | 01/09 | | Activ | | (TOPAMAX) 25 mg | 15 days, then 1 tab | tablet | | / | | e | | tablet | twice a day | | | 19 | | | + + + +---------+------+------+-------+ Active Problems Not on file Immunizations + + + + | Name | Administration Dates | Next Due | + + + + | DTP (PED) | 02/17/1996, 07/05/1992 | | + + + + | HPV, QUADRIVALENT, 3 | 11/08/2009 | | | DOSE (ADOL/ADULT) | | | + + + + | INFLUENZA TRIV | 05/17/2009 | | | W/PRES(PED/ADOL/ADUL | | | | T),MULTIDOSE | | | + + + + | MMR, 2 DOSE | 03/15/2002, 07/05/1992 | | | (PED/ADULT) | | | + + + + | POLIOVIRUS,OPV | 02/17/1996, 07/05/1992 | | | (LIVE) | | | + + + + | TDAP, (ADOL/ADULT) | 12/11/2009 | | + + + + Family History + + +------+ + | Medical History | Relation | Name | Comments | + + +------+ + | Migraines | Father | | | + + +------+ + + +------+--------+ + | Relation | Name | Status | Comments | + +------+--------+ + | Father | | | | + +------+--------+ + | Father | [...] on file | | + + + + + + + | Job Start Date | Occupation | Industry | + + + + | Not on file | Not on file | Not on file | + + + + + + + + | Travel History | Travel Start | Travel End | + + + + + + | No recent travel history available. | + + Last Filed Vital Signs + + + + + | Vital Sign | Reading | Time Taken | Comments | + + + + + | Blood Pressure | 110/72 | 01/20/2019 8:26 AM | | | | | PDT | | + + + + + | Pulse | 68 | 01/20/2019 8:26 AM | | | | | PDT | | + + + + + | Temperature | - | - | | + + + + + | Respiratory Rate | - | - | | + + + + + | Oxygen Saturation | - | - | | + + + + + | Inhaled Oxygen | - | - | | | Concentration | | | | + + + + + | Weight | 83.5 kg (184 lb 1.6 | 01/20/2019 8:26 AM | | | | oz) | PDT | | + + + + + | Height | 172.7 cm (5' 8") | 01/20/2019 8:26 AM | | | | | PDT | | + + + + + | Body Mass Index | 27.99 | 01/20/2019 8:26 AM | | | | | PDT | | + + + + + Plan of Treatment + + + + + | Health Maintenance | Due Date | Last Done | Comments | + + + + + | Vaccine: | | | | | Pneumococcal 19-64 | 7 | | | | (1 of 1 - PPSV23) | | | | + + + + + | Cervical Cancer | | | | | Screening (Pap) | 2 | | | + + + + + | Vaccine: Influenza | | 05/17/2009 | | | (#1) | 9 | | | + + + + + | Vaccine: | | 12/11/2009, 02/17/1996, | | | Dtap/Tdap/Td (4 - | 0 | 07/05/1992 | | | Td) | | | | + + + + + Results Not on filefrom Last 3 Months
--- OUTSIDE RECORDS SUMMARY | ~2019-07-04 | XMS | Clinical Summary ---
Demographics + + + | Address | [address] | | | [place] [address] | + + + | Home Phone | | + + + | Preferred Language | Unknown | + + + | Marital Status | Unknown | + + + | Mandaen Affiliation | Unknown | + + + | Race | Unknown | + + + | Ethnic Group | Unknown | + + + Author + + + | Author | [facility] (Historical as of | | | 03-27-19) | + + + | Organization | [facility] (Historical as of | | | 03-27-19) [...] Team Providers + +------+ + | Care Textile Dyer Name | Role | Phone | + [...] | [employer] | ODS | [id number] | | | | | | HEALTH [...] | | al/Fam | | 1989 | [phone] | [place] | | | karen | | | [phone] | [phone] | + +--------+ +--------+ + +
--- OUTSIDE RECORDS SUMMARY | ~2019-07-04 | XMS | Clinical Summary ---
Demographics + + + | Address | [address] | | | [place] [address] | + + + | Home Phone | | + + + | Preferred Language | Unknown | + + + | Marital Status | Unknown | + + + | Latter Day Affiliation | Unknown | + + + | Race | Unknown | + + + | Ethnic Group | Unknown | + + + Author + + + | Author | [facility] | | | and [place] | + + + | Organization | [facility] | | | and [place] | + + + | Address | Unknown | + + + | Phone | Unavailable | + + + Care Team Providers + +------+ + | Care Obiee Consultant Name | Role | Phone | + [...]
--- OUTSIDE RECORDS SUMMARY | ~2019-07-04 | XMS | Encounter Summary ---
Demographics + + + | Address | [address] | | | [place] [address] | + + + | Home Phone | | + + + | Preferred Language | Unknown | + + + | Marital Status | Unknown | + + + | Faith Affiliation | Unknown | + + + | Race | Unknown | + + + | Ethnic Group | Unknown | + + + Author + + + | Author | [facility] | | | and [place] | + + + | Organization | [facility] | | | and [place] | + + + | Address | Unknown | + + + | Phone | Unavailable | + + + Care Team Providers + +------+ + | [facility] Chief Name | Role | Phone | + +------+ + | Thom Lou NP | PCP | | + +------+ + Encounter Details +--------+ + + + + | Date | Type | Department | Care Team | Description | +--------+ + + + + | 01/20/ | Orders Only | [facility] | Conversion | | | 2019 | | CONVERSION DEP 888 | Transaction, | | | | | PRASAD MESSINA | Provider Unknown | | | | | [place] | [phone] | | | | | [phone] | | | | | | [phone] | | | +--------+ + + + [...] recent travel history available. | + + documented as of this encounter Plan of Treatment Not on filedocumented as of this encounter Visit Diagnoses Not on filedocumented in this encounter"
--- OUTSIDE RECORDS SUMMARY | ~2019-07-04 | XMS | Encounter Summary ---
Demographics + + + | Address | [address] | | | [place] [address] | + + + | Home Phone | | + + + | Preferred Language | Unknown | + + + | Marital Status | Unknown | + + + | Muslim Affiliation | Unknown | + + + | Race | Unknown | + + + | Ethnic Group | Unknown | + + + Author + + + | Author | [facility] | | | and [place] | + + + | Organization | [facility] | | | and [place] | + + + | Address | Unknown | + + + | Phone | Unavailable | + + + Care Team Providers + +------+ + | Care Assistant Manager Retail Name | Role | Phone | + [...] | | | | SHELBIE NEWELL | [phone] | | | | | [address] | | | | | | [phone] | | | +--------+ + + + [...]
[~2019-07-04 12:17] MED LIST changes: +CYCLOBENZAPRINE10 MG PO; +CYMBALTA30 MG PO; +TRAMADOL HCL50 MG PO; +ZOFRAN4 MG PO
--- OUTSIDE RECORDS SUMMARY | 2019-07-04 12:20 | XMS ---
PreManage Notification: SANTI BEDOLLA Security Weed Thinner Events No recent Security Events currently on file CRITERIA MET - [facility] - Has Care Guidelines - PDMP CARE PROVIDERS ROBLES MANNING Nurse Practitioner: Family 11/02/2018-Current PHONE: Unknown Guidelines Source: [facility] Guidelines Date: 01/07/2019 Care Coordination: Has engaged in mental health services with [facility].\T\nbsp; Please contact [facility] for mental health concerns.\T\nbsp; [place]aman Ramirez: \T\nbsp; [place]: [phone]. Care History Medical/Surgical 11/02/[address] [facility] - PATIENT HAS A FOLLOW UP APT WITH PCP ROBLES MANNING ON 01/27/19. - Patient is currently established with [facility]. If patient is seen in the ED during business hours. Please contact CHWs at [facility]. Care Recommendation: This patient has had [...] providing care. E.D. VISIT COUNT (12 MO.) 8 JADIEL Urias TOTAL 8 NOTE: Visits indicate total known visits. ED/UCC VISIT TRACKING (12 MO.) 07/04/2019 12:17 JADIEL Shah [place] TYPE: Emergency COMPLAINT: - CHEST PAIN/SOB 03/29/2019 18:09 JADIEL Shah OR TYPE: Emergency COMPLAINT: - ABD PAIN DIAGNOSES: - Nicotine dependence, unspecified, uncomplicated - Right lower quadrant pain - Allergy status to sulfonamides status 01/25/2019 14:22 JADIEL Shah [place] TYPE: Emergency COMPLAINT: - RAPID HEART RATE DIAGNOSES: - Allergy status to sulfonamides status - Tachycardia, unspecified - Other rn long term care (current) drug therapy - Nicotine dependence, unspecified, uncomplicated - Palpitations - Anxiety disorder, unspecified 01/13/2019 21:42 JADIEL Shah [place] TYPE: Emergency COMPLAINT: - RAPID HEART RATE DIAGNOSES: - Other chest pain - Nicotine dependence, unspecified, uncomplicated - Anxiety disorder, unspecified - Allergy status to sulfonamides status - Other senior care (current) drug therapy - Tachycardia, unspecified 01/06/2019 11:50 JADIEL Shah OR TYPE: Emergency COMPLAINT: - MEDICAL CLEARANCE DIAGNOSES: - Other rn long term care (current) drug therapy - Allergy status to sulfonamides status - Post-traumatic stress disorder, unspecified - Nicotine dependence, unspecified, uncomplicated - Anxiety disorder, unspecified - Encounter for other general examination 11/17/2018 00:12 JADIEL Shah OR TYPE: Emergency COMPLAINT: - CHEST PAIN/SOB DIAGNOSES: - Allergy status to sulfonamides status - Nicotine dependence, unspecified, uncomplicated - Post-traumatic stress disorder, unspecified - Other senior care (current) drug therapy - Other chest pain - Anxiety disorder, unspecified 10/30/2018 22:42 JADIEL Shah [place] TYPE: Emergency COMPLAINT: - NUMBNESS IN EXREMITY DIAGNOSES: - Low back pain - Post-traumatic stress disorder, unspecified - Other senior care (current) drug therapy - Anxiety disorder, unspecified - Nicotine dependence, unspecified, uncomplicated - Attention-deficit hyperactivity disorder, unspecified type - Allergy status to sulfonamides status - Cervicalgia - Hyperventilation - Other chronic pain 07/06/2018 08:04 JADIEL Shah [place] TYPE: Emergency COMPLAINT: - VOMITTING DIAGNOSES: - Other senior care (current) drug therapy - Noninfective gastroenteritis and colitis, unspecified - Personal history of nicotine dependence - Vomiting, unspecified - Allergy status to sulfonamides status INPATIENT VISIT TRACKING (12 MO.) No inpatient visits to display in this time frame [id number]
[2019-07-04] MEDS ORDERED: ASPIRIN325 MG PO (12:30)
--- NOTE | 2019-07-05 07:42 | EKG ---
[facility] [address] [facility] [place] [address] Signed Normal sinus rhythm with sinus arrhythmia Normal ECG When compared with ECG of 25-JAN-2019 14:29, Sinus rhythm has replaced Junctional rhythm Confirmed by DONOVAN GUADARRAMA MD ([id number]) on 07/05/2019 7:42:48 AM Electronically Signed By: DONOVAN GUADARRAMA MD 07/05/19 0742 PATIENT NAME: SANTI BEDOLLA Electrocardiogram DATE OF : [birth year] PHYSICIAN: DONOVAN GUADARRAMA MD REPORT #: [id number] REPORT IS CONFIDENTIAL AND NOT TO BE RELEASED WITHOUT AUTHORIZATION
== END 2019-07-04 14:03 | disposition home or self-care (01) ==
LOC: ED 12:17
DX: R07.89 Other chest pain (principal); F90.9 Attention-deficit hyperactivity disorder, unspecified type; F41.9 Anxiety disorder, unspecified; F43.10 Post-traumatic stress disorder, unspecified; Z87.891 Personal history of nicotine dependence; Z88.2 Allergy status to sulfonamides; Z79.899 Other long term (current) drug therapy
CPT/HCPCS: 71046; 93005; 93010; 99285-25